=== PATIENT | male | born 2000 | race Caucasian/White ===

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

== ENCOUNTER 2020-07-27 16:40 | Emergency (ER) | payer MEDICAID, SELFPAY ==
[2020-07-27 16:42] VITALS: BP 123/70; PULSE 95; RESP 17; TEMP 36.6; O2SAT 99; BMI 23.1
--- NOTE | 2020-07-27 16:46 | ED.RN ---
MOM WOULD LIKE CALLED AND TO BE WITH PT IF HE NEEDS TO HAVE A PROCEDURE DONE. SARA REA [phone]
--- NOTE | 2020-07-27 17:26 | ED.VIS.GEN ---
History of Present Illness Chief Complaint: Foreign Body Informant: Patient Onset: Days - 4 Narrative: Patient presents for evaluation concerns of difficulty swallowing. Patient states symptoms started 4 days ago after drinking coffee. Denies it being significantly hot and being burned. He states feels irritation just above the epigastric region. Noted irritation since then, this morning he states tried eating a pop tart however due to discomfort stopped eating it. He has been tolerating oral fluids. He states he saw urgent care yesterday was given GI cocktail with no improvement was told to go the ED for an emergent scope. He denies any changes in bowel regimen. Denies any bloody or tarry stools. Denies any past medical history denies any similar symptoms in the past. Denies tobacco or alcohol history. Patient later reported he had enlarged lymph nodes both of his axillaries noted yesterday. Denies tobacco history. Prior similar symptoms: No Past Medical History - Allergies and Home Meds Allergies/Adverse Reactions: Allergies No Known Allergies Allergy (Verified 07/27/20 16:41) Primary Care Physician: Elsie Justice MD [STAFF PHYSICIAN] - Past Medical History: None Surgical History: appendectomy Review of Systems General: Denies: Chills, Fever, Sweats Eyes: Denies: Visual changes - bilaterally, Diplopia ENT: Denies: Rhinorrhea, Sore throat Cardiovascular: Denies: Chest pain, Palpitations Respiratory: Denies: Dyspnea, Cough, Dyspnea on exertion Gastrointestinal: Reports: - - Difficulty swallowing.. Denies: Abdominal pain, Nausea, Vomiting, Diarrhea, Melena, Hematochezia Genitourinary: Denies: Dysuria, Hematuria, Frequency Musculoskeletal: Denies: Back pain, Extremity Pain Skin: Denies: Rash, Wounds Neurological: Denies: Headache, Weakness, Numbness Physical Exam Vital Signs/Narrative: Vital Signs Temp Pulse Resp BP Pulse Ox 07/27/20 16:42 97.8 F 95 17 123/70 H 99 Inital Vital Signs reviewed: Yes General: Well nourished, Well developed, No Acute Distress Head: Normocephalic, Atraumatic Eyes: Perrl, EOMI ENT: Moist mucous membranes, No rhinorrhea Neck: Supple, Nontender Cardiovascular: Regular rate, Regular rhythm, No murmurs Respiratory: No distress, CTA bilaterally, Chest nontender Abdomen: Soft, Nontender, Nondistended, Normal bowel sounds Back: Nontender, Normal Inspection Extremities: Nontender, No edema Skin: Normal color, No rash Neurological: Alert, Oriented x3, Cranial nerves II-XII grossly intact, Normal Strength, Normal Sensation Psychological: Normal affect, Normal Mood Diagnostic/Tx/Re-eval Clinical Impression(s) from Imaging Studies Chest CT 07/27/20 18:24 IMPRESSION: Normal enhanced CT Chest examination. Subcentimeter bilateral axillary lymph nodes. No other axillary masses or fluid collections. No acute bone or joint findings. No acute findings in the uppermost abdomen. Electronically Signed: Delicia Thurman MD at 19:26 EST , Service support , Abnormal Lab Results 07/27/20 07/27/20 07/27/20 18:35 18:35 18:35 WBC 6.1 RBC 5.11 Hgb 14.7 Hct 43.7 MCV 85.5 MCH 28.8 MCHC 33.6 RDW Std Deviation 37.3 RDW Coeff of Celia 12.0 Plt Count 151 MPV 9.0 Immature Gran % (Auto) 0.300 Neut % (Auto) 61.5 Lymph % (Auto) 23.0 [facility] % (Auto) 12.3 H Eos % (Auto) 2.1 Baso % (Auto) 0.8 Absolute Neuts (auto) 3.8 Absolute Lymphs (auto) 1.41 Nucleated RBC % 0 PT 13.9 INR 1.1 APTT 29.2 Sodium 140 Potassium 3.9 Chloride 106 Carbon Dioxide 32.0 Anion Gap 2 L BUN 11 Creatinine 1.01 Estim Creat Clear Calc 138.28 Est GFR (MDRD) Af Amer 121 Est GFR (MDRD) Non-Af 100 BUN/Creatinine Ratio 10.9 Glucose 128 H Calcium 9.2 - Medical Decision Making Patient vitals stable initial presenting with dysphagia he is tolerating oral liquids he was given a carbonated drink was able to take it down. He felt discomfort. Discussed concerns for gastritis or esophagitis. He denies any GI bleed issues. Initial discussion for plan for a PPI and Carafate to try to help with symptoms along with follow-up with surgery for an outpatient endoscopy as needed. However he reported shortly after that he had axillary lymph nodes that he noted yesterday. Was not able to clearly palpate the areas, however discussed with patient with him reporting symptoms, differentials include potential cancers that can cause obstructions towards the esophagus to cause his symptoms. Discussed with patient and his mother on the phone they would like work-up for this. Labs and a CT chest with IV contrast obtained, did not know any masses however did note subcentimeter axillary lymph nodes. Nonspecific at this time. He be given a prescription of pantoprazole and Carafate and follow-up with surgery. He will eat a soft diet. ED Disposition - Plan for ED Patient: Disposition: Home or Assisted Living Diagnosis: Gastritis, Dysphagia, Lymphadenopathy Instructions: ED Gastritis, ED Dysphagia Adult Prescriptions: Sucralfate [Carafate] 1 gm PO 4X/DAY #560 ml Transmission Status: Pending to [facility] Pantoprazole Sodium [Protonix] 40 mg PO DAILY #30 tab Transmission Status: Pending to [facility] Referrals: Kristal Hutchinson MD [STAFF PHYSICIAN] - 3-5 Days Additional Instructions: Soft foods, take medications as prescribed. Follow-up as an outpatient for further testing.
--- NOTE | 2020-07-27 18:24 | CT_ITS ---
STUDY: CT CHEST WITH CONTRAST REASON FOR EXAM: Male, 20 years old. CHEST PAIN, SWOLLEN LYMPH NODES IN RT ARMPIT RADIATION DOSAGE (If Supplied By Facility): CTDIvol = ( 10.55 ) mGy, DLP = ( 355.45 ) mGycm TECHNIQUE: Transaxial imaging was performed following intravenous administration of IV 100mL Isovue-370. Multiplanar coronal and sagittal images were reformatted. Individualized dose optimization techniques were used for this CT. COMPARISON: None. FINDINGS: The lungs are normal. There is no demonstrated pleural abnormality. Normal heart and pericardium. Normal mediastinum. Normal hilar regions. Normal enhanced pulmonary arteries. Normal aorta arch and descending thoracic aorta. Subcentimeter bilateral axillary lymph nodes. No other axillary mass or fluid collection. Normal osseous structures. No acute findings in the upper abdomen. CT/Chest WITH Contrast IMPRESSION: Normal enhanced CT Chest examination. Subcentimeter bilateral axillary lymph nodes. No other axillary masses or fluid collections. No acute bone or joint findings. No acute findings in the uppermost abdomen. Electronically Signed: Delicia Thurman MD at 19:26 EST , Service support ,
[2020-07-27 18:44] LABS: Absolute Lymphocyte Count 1.41 X10^3/uL (0.83-4.51); Absolute Neutrophil Count 3.8 X10^3/uL (2.0-7.7); Basophil# 0.05 X10^3/uL; Basophil% 0.8 % (0-1); Eosinophil# 0.13 X10^3/uL; Eosinophils% 2.1 % (0-5); Hematocrit 43.7 % (40-54); Hemoglobin 14.7 g/dL (13.0-16.5); Lymphocyte # 1.41 X10^3/ul (4.0); Mean Corp Hgb Conc 33.6 g/dL (32-36); Mean Corpuscular Hgb 28.8 pg (27.0-32.0); Mean Corpuscular Volume 85.5 fL (80-94); Monocyte# 0.75 X10^3/uL; Monocyte% 12.3 % (0-10); NRBC Flagged by Analyzer 0 % (0-5); Neutrophil # 3.76 X10^3/uL (2.7-7.7); Neutrophil % 61.5 % (47-70); Platelet Count 151 K/mm3 (150-450); RBC Distribution Width SD 37.3 fl (35.1-43.9); Red Blood Count 5.11 M/mm3 (4.6-6.2); White Blood Count 6.1 K/mm3 (4.4-11.0)
[2020-07-27 18:52] LABS: International Normalized Ratio 1.1; Prothrombin Time (Protime)PT. 13.9 SECONDS (11.7-14.9)
[2020-07-27 18:59] LABS: Partial Thromboplast Time 29.2 Seconds (24.1-36.2)
[2020-07-27 19:03] LABS: Anion Gap 2 (5-15); BUN 11 mg/dL (7-18); BUN/Creat Ratio 10.9 RATIO (10-20); Calcium,Total 9.2 mg/dL (8.5-10.1); Chloride 106 mmol/L (98-107); Creatinine, Serum 1.01 mg/dL (0.70-1.30); EST Glomerular Filtration Rate 100 mL/min (>60); Est Glom Filt Rate - Afr Amer 121 mL/min (>60); Estimated Creatinine Clearance 138.28 ml/min; Glucose 128 mg/dL (74-106); Potassium 3.9 mmol/L (3.5-5.1); Sodium Level 140 mmol/L (136-145)
[2020-07-27 20:45] VITALS: BP 134/68; PULSE 84; RESP 15; O2SAT 100
== END 2020-07-27 20:59 | disposition home or self-care (01) ==
PROVIDERS: Emergency Provider Emergency Medicine; PCP Family Medicine
DX: K29.70 Gastritis, unspecified, without bleeding (principal); R13.10 Dysphagia, unspecified; R59.0 Localized enlarged lymph nodes
CPT/HCPCS: 71260; 80048; 85025; 85610; 85730; 99282; Q9967; A4216

== ENCOUNTER → 2020-07-30 10:38 | Outpatient (CLI) | payer MEDICAID, SELFPAY ==
[2020-07-27 16:42] VITALS: BMI 23.1
[2020-07-30 13:33] LABS: AST(SGOT) 15 U/L (15-37); Alanine Aminotransfer ALT/SGPT 28 U/L (16-61); Albumin, Serum 4.2 g/dL (3.2-5.0); Alkaline Phosphatase 42 U/L (45-117); Bilirubin, Direct 0.32 mg/dL (0.00-0.30); Globulin 3.4 g/dL (2.2-4.2); Protein, Total 7.6 g/dL (6.4-8.2); Thyroid Stim Hormone (TSH) 1.58 uIU/mL (0.358-3.74)
[2020-07-31 11:57] LABS: Eosinophils Count 0.1 x10E3/uL (0.0-0.4)
== END ==
PROVIDERS: PCP Family Medicine; Visit Provider Family Medicine
DX: R13.10 Dysphagia, unspecified (principal)
CPT/HCPCS: 36415; 80076; 84443; 85048